=== PATIENT | female | born 1990 | race Caucasian/White ===

== ENCOUNTER 2017-04-15 17:38 | Emergency (ER) | payer BC ==
[2017-04-15 17:58] VITALS: BP 125/80
[2017-04-15] MEDS ORDERED: predniSONE TAB* 20 MG PO ONE (18:46)
[2017-04-15] MEDS ORDERED: diPHENhydraMINE PO* 25 MG PO ONE (18:47)
--- NOTE | 2017-04-15 18:57 | UC ---
Deena Menezes Edward, scribed for Raul Kerr MD on 04/15/17 at 1848 . Skin Complaint HPI - HPI Summary HPI Summary: 26 y/o female presents to [facility] c/o sudden onset pruritic rash on both arms and diffusely over her body - knees, chest, and ABD. The rash is erythematous and raised. The rash started one week ago but became much worse last night. Denies difficulty breathing, fever/chills. - History of Current Complaint Chief Complaint: UCRash Stated Complaint: RASHES Hx Obtained From: Patient Hx Last Menstrual Period: one month ago Onset/Duration: Sudden Onset, Lasting Weeks, Still Present Character: Pruritus, Redness, Raised Associated Signs & Symptoms: Negative: Difficulty Breathing, Fever, Chills - Allergy/Home Medications Allergies/Adverse Reactions: Allergies Allergy/AdvReac Type Severity Reaction Status Date / Time Shellfish Allergy Allergy Hives Verified 04/15/17 17:58 Home Medications: Home Medications Amitriptyline TAB* [Elavil TAB*] 1 cap PO BEDTIME 04/15/17 [History Confirmed ] Gabapentin CAP(*) [Neurontin 300 CAP(*)] 1 cap PO BID 04/15/17 [History Confirmed 04/15/17] Review of Systems Constitutional: Negative Skin: Rash - pruritic Eyes: Negative ENT: Negative Respiratory: Negative Cardiovascular: Negative Gastrointestinal: Negative Genitourinary: Negative Motor: Negative Neurovascular: Negative Musculoskeletal: Negative Neurological: Negative Psychological: Negative All Other Systems Reviewed And Are Negative: Yes PMH/Surg Hx/FS Hx/Imm Hx - Additional Past Medical History Additional PMH: Negative: DM, cardiac disease Previously Healthy: No - Surgical History Surgical History: None - Family History Known Family History: Negative: Other - Denies psychiatric history - Social History Alcohol Use: Occasionally Substance Use Type: Marijuana, Prescribed Smoking Status (MU): Light Every Day Tobacco Smoker Type: Cigarettes Amount Used/How Often: 1 daily Have You Smoked in the Last Year: Yes Household Exposure Type: Cigarettes - Immunization History Most Recent Tetanus Shot: Thinks she is up to date, not sure Physical Exam Triage Information Reviewed: Yes Appearance: Well-Appearing, No Pain Distress Vital Signs: Initial Vital Signs Temp 97.7 F 04/15/17 17:55 Pulse 84 04/15/17 17:55 Resp 18 04/15/17 17:55 BP 125/80 04/15/17 17:55 Pulse Ox 99 04/15/17 17:55 Vital Signs Reviewed: Yes Eye Exam: Normal ENT Exam: Normal Neck: Positive: Supple, Nontender Respiratory: Positive: Lungs clear, Normal breath sounds Cardiovascular: Positive: RRR, No Murmur Abdomen Description: Positive: Nontender, Soft Bowel Sounds: Positive: Present Musculoskeletal Exam: Normal Musculoskeletal: Positive: Strength Intact, ROM Intact Neurological Exam: Normal Neurological: Positive: Muscle Tone Normal Psychological Exam: Normal Psychological: Positive: Age Appropriate Behavior Skin Exam: Other - Warm, dry and color reflects adequate perfusion. R forearm - excoriated area, erythematous and raised. Erythematous raised area on chest, ABD. Course/Dx - Course Course Of Treatment: PAST MEDICATIONS REVIEWED ON VISIT. NO AIRWAY INVOLVEMENT. RX PREDNISONE AND BENADRYL. - Diagnoses Provider Diagnoses: CONTACT DERMATITIS/ALLERGIC REACTION Discharge - Discharge Plan Condition: Stable Disposition: HOME Prescriptions: diPHENhydraMINE PO* [Benadryl PO 50 MG CAP*] 50 mg PO Q6H PRN #20 cap PRN Reason: Allergy Symptoms predniSONE TAB* [Deltasone TAB*] 40 mg PO DAILY #10 tab Patient Education Materials: General Allergic Reaction (ED), Poison Marian (ED) Referrals: Hannah Pearl [Primary Care Provider] - Additional Instructions: FOLLOW UP WITH YOUR DOCTOR. GET RECHECKED FOR ANY WORSENING OF YOUR CONDITION OR QUESTIONS OR CONCERNS. The documentation as recorded by the Deena alvarez Edward accurately reflects the service I personally performed and the decisions made by me, Raul Kerr MD.
== END 2017-04-15 19:00 | disposition home or self-care (01) ==
LOC: UCEAST 17:38
DX: L23.9 Allergic contact dermatitis, unspecified cause (principal); Z91.013 Allergy to seafood; F12.90 Cannabis use, unspecified, uncomplicated; F17.210 Nicotine dependence, cigarettes, uncomplicated
CPT/HCPCS: 99212; A9270-GY; G0463; J7512

== ENCOUNTER 2018-03-07 12:42 | Emergency (ER) | payer SELFPAY ==
[2018-03-07 12:57] VITALS: BP 123/78
--- NOTE | 2018-03-07 13:35 | UC ---
Skin Complaint HPI - HPI Summary HPI Summary: 27 y/o female presents to the urgent care c/o rash on right upper arm and left posterior knee for the past week. has been going on for about a week. Pt has been using Eucarin topical cream w/o any improvement. Itchiness is not allowing her to sleep at night. Pt states she had a similar rash last year which resolved w/ steroids. Pt denies eating something different or wearing a new body lotion or use of new detergent. Pt denies fever, SOB, throat tightening, chest pain, abdominal pain, N/v/D. - History of Current Complaint Chief Complaint: UCSkin Time Seen by Provider: 03/07/18 13:27 Stated Complaint: RASH Hx Obtained From: Patient Hx Last Menstrual Period: February 01, 2018 ?: No Onset/Duration: Gradual Onset, Lasting Weeks - 1 week, Still Present, Worse Since - yesterday Skin Exposure Onset/Duration: Weeks Ago - 1 week Timing: Constant Onset Severity: Mild Current Severity: Moderate Pain Intensity: 0 Pain Scale Used: 0-10 Numeric Location: Discrete - RT arma and posterior side of left knee Character: Pruritus, Redness Aggravating Factor(s): Touch Alleviating Factor(s): OTC Meds - Eucerin topical cream Associated Signs & Symptoms: Positive: Rash. Negative: Difficulty Breathing, Hoarseness, Throat Tightening, Drainage, Bruising Related History: Possible Reaction to: Environmental Exposure - Allergy/Home Medications Allergies/Adverse Reactions: Allergies Allergy/AdvReac Type Severity Reaction Status Date / Time shellfish derived Allergy Unknown Verified 03/07/18 12:57 Reaction Details Review of Systems Constitutional: Negative Skin: Rash - RT arm and posterior left knee w/ redness and itchiness Eyes: Negative ENT: Negative Respiratory: Negative Cardiovascular: Negative Gastrointestinal: Negative Genitourinary: Negative Motor: Negative Neurovascular: Negative Musculoskeletal: Negative Neurological: Negative Psychological: Negative Is Patient Immunocompromised?: No All Other Systems Reviewed And Are Negative: Yes PMH/Surg Hx/FS Hx/Imm Hx Previously Healthy: Yes Neurological History: Migraine - Surgical History Surgical History: None - Family History Known Family History: Positive: None - Pt denies FMHX Family History: Denies psychiatric history - Social History Occupation: Employed Full-time Lives: With Family Alcohol Use: Weekly Substance Use Type: Marijuana, Prescribed Smoking Status (MU): Light Every Day Tobacco Smoker Type: Cigarettes Amount Used/How Often: 1 daily Have You Smoked in the Last Year: Yes Household Exposure Type: Cigarettes - Immunization History Most Recent Tetanus Shot: Thinks she is up to date, not sure Physical Exam - Summary Physical Exam Summary: Vital Signs Reviewed: Yes General: well developed, well nourished female sitting in the examining table w/ o any apparent distress. Eyes: Positive: Conjunctiva Clear - PERRLA, EOMI ENT: Positive: Normal ENT inspection, Hearing grossly normal, Pharynx normal, TMs normal Neck: Positive: Supple, Nontender, No Lymphadenopathy Respiratory: Positive: Chest nontender, Lungs clear, Normal breath sounds Cardiovascular: Positive: RRR, No Murmur, Pulses Normal Abdomen Description: Positive: Nontender, No Organomegaly, Soft. Negative: CVA Tenderness (R), CVA Tenderness (L) Bowel Sounds: Positive: Present Musculoskeletal: Positive: Strength Intact, ROM Intact, No Edema Neurological Exam: Normal Psychological Exam: Normal Skin: Positive: rashes - RT ventral side of Rt forearm and left posterior knee w / erythematous maculopapular eruption patch about 4.0cm and 6.0cm in size, non tender to palpation w/ signs of excoriation, no swelling or drainage observed, Triage Information Reviewed: Yes Vital Signs: Initial Vital Signs Temp 99.0 F 03/07/18 12:51 Pulse 96 03/07/18 12:51 Resp 16 03/07/18 12:51 BP 123/78 03/07/18 12:51 Pulse Ox 100 03/07/18 12:51 Course/Dx - Course Course Of Treatment: 27 y/o female presents to the urgent care c/o rash on right upper arm and left posterior knee for the past week. has been going on for about a week. Pt has been using Eucarin topical cream w/o any improvement. Itchiness is not allowing her to sleep at night. Pt states she had a similar rash last year which resolved w/ steroids. Pt denies eating something different or wearing a new body lotion or use of new detergent. Pt denies fever, SOB, throat tightening,chest pain, abdominal pain, N/V/D.Hx obtained. Pt w/ probably w/ contact dermatitis on RT arm and posterior left knee on examination.PT Rx Prednisone PO taper dose, Benadryl PO and Hydrocortisone topical cream to alleviate symptoms. D/C instructions explained. Pt understood and agreed w/ plan of care and left the clinic ambulating and hemodynamically stable. - Differential Diagnoses - Skin Complaint Differential Diagnoses: Abscess, Cellulitis, Contact Dermatitis, Eczema, Local Allergic Reaction, Poison Marian, Poison Mobile, Urticaria - Diagnoses Provider Diagnoses: 1- Contact dermatitis/ local allergic reaction Discharge - Sign-Out/Discharge Documenting (check all that apply): Patient Departure - D/C home - Discharge Plan Condition: Stable Disposition: HOME Prescriptions: diPHENhydraMINE PO* [Benadryl PO 25 MG TAB*] 25 mg PO TID PRN #30 tab PRN Reason: pruritus Hydrocortisone 1% CREAM* [Hytone Cream 1%*] 1 applic TOPICAL BID #1 tube predniSONE TAB* [Deltasone 20 MG TAB*] 20 mg PO DAILY #11 tab Patient Education Materials: Contact Dermatitis (ED) Referrals: Hannah Pearl [Primary Care Provider] - 2 Days Vane Westfall [Medical Doctor] - If Needed Additional Instructions: 1-Please Start taking Prednisone PO taper dose. 2- Continue taking Benadryl PO to alleviate itchiness. Apply topical cream as directed. Avoid exposure to the sun. 3-If symptoms do not improve or worsen please f/u with your PCP or Veterinary Pharmacologist in 2-3 days for further evaluation and treatment. - Billing Disposition and Condition Condition: STABLE Disposition: Home
== END 2018-03-07 14:00 | disposition home or self-care (01) ==
LOC: UCEAST 12:42
DX: L23.9 Allergic contact dermatitis, unspecified cause (principal); F17.210 Nicotine dependence, cigarettes, uncomplicated; Z91.013 Allergy to seafood
CPT/HCPCS: 99212; G0463

== ENCOUNTER 2019-01-16 11:12 | Day surgery (SDC) | payer BC ==
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
[2019-01-16] MEDS ORDERED: Famotidine IV* 10 MG/ML 2 ML (20 mg) ONE (11:20)
[2019-01-16] MEDS ORDERED: ceFAZolin 2 GM PREMIX in ORs 2 GM/50 ML BAG IVPB ONE (11:20)
[2019-01-16] MEDS ORDERED: Dexamethasone IV* 4 MG/ML 1 ML (4 MG) ONE (11:20)
[2019-01-16] MEDS ORDERED: fentaNYL* 50 MCG/ML 2 ML VIAL (100 MCG VIAL) ONE ×3 (11:27→15:31)
[2019-01-16] MEDS ORDERED: Midazolam* 1 MG/ML 2 ML VIAL (2 MG) ONE (11:28)
[2019-01-16] MEDS ORDERED: Ondansetron INJ* 2 MG/ML VIAL ONE ×2 (11:37→13:47)
[2019-01-16] MEDS ORDERED: Ketorolac INJ* 30 MG/ML 1 ML VIAL ONE ×2 (11:37→13:47)
[2019-01-16] MEDS ORDERED: Bupivacaine 0.25% SDV PF* 10 ML VIAL INJ ONE (13:43)
[2019-01-16] MEDS ORDERED: Bupivacaine 0.5% SDV PF* 30ML VIAL ONE (13:43)
[2019-01-16] MEDS ORDERED: Lidocaine 2% PF * 5 ML VIAL ONE (13:47)
[2019-01-16] MEDS ORDERED: Propofol* 10 MG/ML 20 ML BTL ONE (13:47)
[2019-01-16] MEDS ORDERED: Naloxone* 0.4 MG/ML 1 ML VIAL IV PRN (14:28)
[2019-01-16] MEDS ORDERED: DiMENhydriNATE IV* 50 MG/ML VIAL IV PUSH PRN (14:28)
[2019-01-16] MEDS ORDERED: HYDROcodone/ACETAMIN 5-325 MG* 1 TAB ONE (15:31)
[2019-01-16] MEDS: fentaNYL* 50 MCG/ML 2 ML VIAL (100 MCG VIAL) IV PRN ×2 (15:33→15:50)
[2019-01-16] MEDS ORDERED: HYDROmorphone INJ* 0.5 MG/0.5 ML SYRINGE ONE (15:57)
[2019-01-16] MEDS: HYDROmorphone INJ1* 1 MG/ML SYRINGE IV PRN ×2 (16:00→16:13)
[2019-01-16 16:22] VITALS: BP 115/61
--- NOTE | 2019-01-16 20:49 | OP ---
CC: Dr. Hill* OPERATIVE REPORT: DATE OF OPERATION: 01/16/19 - [place] DATE OF : 89 SURGEON: Mariam Hill MD BRUSHER: RAMOS Mcdonald ANESTHESIOLOGIST: Bryson Carlson MD ANESTHESIA: General. PRE-OP DIAGNOSIS: Fifth metacarpal fracture, right side. POST-OP DIAGNOSIS: Fifth metacarpal fracture, right side. OPERATIVE PROCEDURE: Open reduction and internal fixation of the right fifth metacarpal. INDICATIONS: Krys is a 28-year-old female, who suffered a fracture of her right fifth metacarpal; it is distal and about 3 weeks' old. She has rotational deformity. She presents for ORIF of right fifth metacarpal. ESTIMATED BLOOD LOSS: Zero. TOURNIQUET TIME: About 40 minutes. DESCRIPTION OF PROCEDURE: The patient was brought to the operating room, was given a general anesthetic, and placed in the supine position on the operating room table with a tourniquet around her right upper arm. Skin of her right upper extremity was prepped and draped in the usual sterile fashion. Attempted closed reduction was not successful; therefore, we decided to use a plate and screws to repair the fracture. A dorsal ulnar incision was made and branches of the ulnar sensory nerve were located, retracted by the surgical technician, Radha Salmon, whose assistance was essential for safe completion of the surgery. The periosteum was incised longitudinally and the fracture fragments were reduced and then secured with a Synthes plate from the Modular Handset 2.0 mm with a T-shaped plate. Two screws were placed in the distal fragment and 3 screws in the proximal fragment. The position of the hardware and fracture fragments was checked on the C-arm in the AP and lateral views and found to be satisfactory. The wound was irrigated. The periosteum was repaired over the plate and then the skin edges reapproximated with 4-0 nylon suture. The wound was dressed with Xeroform, 4x4, Webril, and a ulnar gutter splint. The patient tolerated the procedure well and was brought to the recovery room in good condition. [id number]/[facility] #: [id number] MTDD
== END 2019-01-16 16:50 | disposition home or self-care (01) ==
LOC: OREAST 11:12
PROVIDERS: ATTEND Orthopaedic Surgery
DX: S62.306A Unspecified fracture of fifth metacarpal bone, right hand, initial encounter for closed fracture (principal); Y04.0XXA Assault by unarmed brawl or fight, initial encounter; Y92.9 Unspecified place or not applicable; Z72.0 Tobacco use; F41.8 Other specified anxiety disorders; Z87.820 Personal history of traumatic brain injury
CPT/HCPCS: 76000; 81025; C1713; C1776; J0690; J1100; J1170; J1885; J2250; J2405; J2704; J3010; J3490

== ENCOUNTER 2019-03-25 11:39 | Emergency (ER) | payer BC ==
[2019-03-25 12:07] VITALS: BP 126/96
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
== END 2019-03-25 13:48 | disposition home or self-care (01) ==
LOC: UCEAST 11:39
DX: S00.83XA Contusion of other part of head, initial encounter (principal); W22.8XXA Striking against or struck by other objects, initial encounter; Y92.9 Unspecified place or not applicable; F10.10 Alcohol abuse, uncomplicated; F17.210 Nicotine dependence, cigarettes, uncomplicated
CPT/HCPCS: 70150; 99201; G0463